=== PATIENT | female | born 1985 | race Caucasian/White ===

== ENCOUNTER 2017-01-07 22:10 | Inpatient (IN) | payer MEDICAID ==
[~2017-01-07] VITALS: Ht 165.1 cm; Wt 91.8 kg
[~2017-01-07 22:10] MED LIST: NO MEDS
[2017-01-08] VITALS (24 sets, daily range): BP systolic 92–161; BP diastolic 55–82; PULSE 72–98; RESP 14–20; Ht 165.1 cm; Wt 91.8 kg
[2017-01-08] MEDS ORDERED: ONDANSETRON 4 MG INJ IV STA (00:43)
[2017-01-08] MEDS ORDERED: SOD CHLORIDE 0.9% 1,000 ML IV STA (00:43)
[2017-01-08] MEDS ORDERED: morphine 4 MG/ML VIAL IV STA (00:43)
--- NOTE | 2017-01-08 01:11 | ERD ---
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 HPI 31-year-old female presents here in emergency department for complaints of bilateral lower pelvic pain that started 2 hours prior to arrival. Patient had vomiting episodes. Patient denies any diarrhea or constipation. Patient last menstruation December 02, 2016. Patient is complaining of pelvic pain, cramping pain, 4/10 scale, started to have vaginal spotting also today. Patient denies any hematuria or dysuria. Patient denies any flank pain. ROS All systems reviewed and are negative except as per history of present illness. Medications Home Meds Reported Medications [No Meds] No Conflict Check 07/12/12 Allergies Allergies: Coded Allergies: No Known Allergy (Unverified , 01/07/17) PMhx/Soc Medical and Surgical Hx: pt denies Surgical Hx History of Surgery: No Anesthesia Reaction: No Hx Neurological Disorder: No Hx Respiratory Disorders: No Hx Cardiac Disorders: No Hx Psychiatric Problems: No Hx Miscellaneous Medical Probl: Yes (HTN) Hx Alcohol Use: No Hx Substance Use: No Hx Tobacco Use: No Smoking Status: Never smoker FmHx Family History: No coronary disease, No diabetes, No other Physical Exam Vitals Vital Signs Date Time Temp Pulse Resp B/P Pulse Ox O2 Delivery O2 Flow Rate FiO2 01/07/17 22:19 98.9 85 20 121/89 98 Physical Exam GENERAL: The patient is well developed and appropriate for usual state of health, in no apparent distress. CHEST: Clear to auscultation bilaterally. There are no rales, wheezes or rhonchi. HEART: Regular rate and rhythm. No murmurs, clicks, rubs or gallops. No S3 or S4. ABDOMEN: Soft, nontender and nondistended. Good bowel sounds. No rebound or guarding. No gross peritonitis. No gross organomegaly or masses. No Gonzalez sign or McBurney point tenderness. BACK: No midline or flank tenderness. EXTREMITIES: Equal pulses bilaterally. There is no peripheral clubbing, cyanosis or edema. No focal swelling or erythema. Full range of motion. Grossly neurovascularly intact. NEURO: Alert and oriented. Cranial nerves 2-12 intact. Motor strength in all 4 extremities with 5/5 strength. Sensation grossly intact. Normal speech and gait. SKIN: There is no apparent rash or petechia. The skin is warm and dry. HEMATOLOGIC AND LYMPHATIC: There is no evidence of excessive bruising or lymphedema. No gross cervical, axillary, or inguinal lymphadenopathy. Result Diagram: 01/08/17 0054 01/08/17 0054 Results 24 hrs Laboratory Tests Test 01/08/17 00:42 01/08/17 00:54 Urine Color JASWINDER Urine Clarity CLOUDY Urine pH 5.0 Urine Specific [place] 1.044 Urine Ketones TRACEmg/dL Urine Nitrite NEGATIVEmg/dL Urine Bilirubin 1+mg/dL Urine Urobilinogen 1+mg/dL Urine Leukocyte Esterase NEGATIVELeu/ul Urine Microscopic RBC 111/HPF Urine Microscopic WBC 14/HPF Urine Squamous Epithelial Cells MODERATE/HPF Urine Bacteria FEW/HPF Urine Mucus MANY/HPF Urine Hemoglobin 2+mg/dL Urine Glucose 1+mg/dL Urine Total Protein 2+mg/dl White Blood Count 21.010^3/ul Red Blood Count 3.9510^6/ul Hemoglobin 11.5g/dl Hematocrit 34.5% Mean Corpuscular Volume 87.3fl Mean Corpuscular Hemoglobin 29.1pg Mean Corpuscular Hemoglobin Concent 33.3g/dl Red Cell Distribution Width 12.6% Platelet Count 74621^3/UL Mean Platelet Volume 9.3fl Neutrophils % 83.8% Lymphocytes % 10.9% Monocytes % 4.3% Eosinophils % 0.1% Basophils % 0.3% Nucleated Red Blood Cells % 0.0/100WBC Neutrophils # 17.610^3/ul Lymphocytes # 2.310^3/ul Monocytes # 0.910^3/ul Eosinophils # 0.010^3/ul Basophils # 0.110^3/ul Nucleated Red Blood Cells # 0.010^3/ul Sodium Level 142mmol/L Potassium Level 4.3mmol/L Chloride Level 107mmol/L Carbon Dioxide Level 24mmol/L Anion Gap 15 Blood Urea Nitrogen 20mg/dl Creatinine 0.84mg/dl Glucose Level 176mg/dl Calcium Level 9.2mg/dl Total Bilirubin 0.1mg/dl Direct Bilirubin 0.00mg/dl Indirect Bilirubin 0.1mg/dl Aspartate Amino Transf (AST/SGOT) 21IU/L Alanine Aminotransferase (ALT/SGPT) 25IU/L Alkaline Phosphatase 73IU/L Total Protein 7.8g/dl Albumin 4.1g/dl Globulin 3.70g/dl Albumin/Globulin Ratio 1.10 Lipase 53U/L Beta HCG, Quantitative 1013.4mIU/ml Current Medications Medications (Trade) Dose Ordered Sig/James Route PRN Reason Start Time Stop Time Status Last Admin Dose Admin Sodium Chloride (NS) 1,000 ml @ 1,000 mls/hr Q1H STAT IV 01/08/17 00:43 01/08/17 01:42 DC 01/08/17 00:57 Morphine Sulfate (morphine) 4 mg ONCE STAT IV 01/08/17 00:43 01/08/17 00:48 DC Ondansetron HCl (Zofran Inj) 4 mg ONCE STAT IV 01/08/17 00:43 01/08/17 00:45 DC 01/08/17 01:00 Morphine Sulfate (morphine) 6 mg ONCE ONCE IV 01/08/17 02:00 01/08/17 02:01 DC 01/08/17 01:49 Metoclopramide HCl (Reglan) 10 mg ONCE ONCE IV 01/08/17 02:30 01/08/17 02:31 DC 01/08/17 02:26 Hydromorphone HCl (Dilaudid) 1 mg ONCE STAT IV 01/08/17 02:57 01/08/17 02:58 UNV Patient was given medication for pain here in emergency department, after treatment, patient verbalized feeling much better. Patient's pain is improved. Patient was given Zofran here in the emergency department. After treatment, patient was able to tolerate po fluids here in the emergency department without any vomiting. There is no signs and symptoms of dehydration. Normal saline IV bolus was given here in emergency department for rehydration, patient tolerated IV fluids. PROCEDURE: Obstetrical ultrasound. CLINICAL INDICATION: Pelvic pain. TECHNIQUE: Multiple sonographic images of the pelvis were obtained utilizing a transabdominal and endovaginal technique. The images were reviewed on a PACS workstation. COMPARISON: None. FINDINGS: The uterus is visualized. No abnormal uterine mass is identified. The endometrial echo complex is homogeneous and measures 5 mm. No intrauterine is identified. Bilateral ovaries are not visualized. There is heterogeneous material throughout the pelvis suggestive of blood and blood clots. IMPRESSION: No intrauterine identified. Clinical beta-hCG correlation and follow- up is recommended. Heterogeneous material throughout the pelvis suggestive of blood and blood clots. Bilateral ovaries not visualized. .Paras Irvin MD, Date Time Electronically viewed and signed by .Paras Irvin MD, on 01/08/2017 01:49 .T/ CC: DARBY SWEET [employer] DEVELOPER Procedures/MDM Medical Decision Making: Patient has heterogeneous possible blood clots and blood surrounding the uterus and pelvis, the pelvic pain nonspecific at this time, has positive test but no IUP noted, can be early symptoms of ectopic . I discussed this case with OB specialist, , admit patient to the hospital for further evaluation treatment and observation. Patient is stable at this time, medicated for pain at this time Disclaimer: Inadvertent spelling and grammatical errors are likely due to EHR/ dictation software use and do not reflect on the overall quality of patient care. Also, please note that the electronic time recorded on this note does not necessarily reflect the actual time of the patient encounter. Departure Diagnosis: Primary Impression: Pelvic pain Additional Impression: Positive test Condition: Fair DARBY SWEET NP Jan 08, 2017 01:11
[2017-01-08 01:15] LABS: BASOPHIL # 0.1 10^3/ul (0.0-0.1); BASOPHILS % 0.3 % (0.0-2.0); EOSINOPHILS % 0.1 % (0.0-7.0); HEMATOCRIT 34.5 % (37.0-47.0); HEMOGLOBIN 11.5 g/dl (12.0-16.0); LYMPHOCYTES # 2.3 10^3/ul (0.8-2.9); LYMPHOCYTES % 10.9 % (15.0-51.0); MEAN CORPUSCULAR HEMOGLOBIN 29.1 pg (29.0-33.0); MEAN CORPUSCULAR HGB CONC 33.3 g/dl (32.0-37.0); MEAN CORPUSCULAR VOLUME 87.3 fl (82.0-101.0); MEAN PLATELET VOLUME 9.3 fl (7.4-10.4); MONOCYTE # 0.9 10^3/ul (0.3-0.9); MONOCYTES % 4.3 % (0.0-11.0); NEUTROPHIL # 17.6 10^3/ul (1.6-7.5); NEUTROPHILS % 83.8 % (39.0-77.0); PLATELET COUNT 365 10^3/UL (140-415); RED BLOOD COUNT 3.95 10^6/ul (4.20-5.40); RED CELL DISTRIBUTION WIDTH 12.6 % (11.5-14.5)
[2017-01-08 01:31] LABS: ADD UMIC YES; UR ASCORBIC ACID 40 mg/dL (NEGATIVE); UR BACTERIA FEW /HPF (NONE SEEN); UR BILIRUBIN (Dip) 1+ mg/dL (NEGATIVE); UR BLOOD (Dip) 2+ mg/dL (NEGATIVE); UR CLARITY CLOUDY (CLEAR); UR COLOR AMBER (YELLOW); UR GLUCOSE (Dip) 1+ mg/dL (NEGATIVE); UR KETONES (Dip) TRACE mg/dL (NEGATIVE); UR LEUKOCYTE ESTERASE (Dip) NEGATIVE Leu/ul (NEGATIVE); UR MUCUS MANY /HPF (NONE SEEN); UR NITRITE (Dip) NEGATIVE (NEGATIVE); UR RBC 111 /HPF (0-5); UR SPECIFIC GRAVITY (Dip) 1.044 (1.003-1.030); UR SQUAMOUS EPITHELIAL CELL MODERATE /HPF (FEW); UR TOTAL PROTEIN (Dip) 2+ mg/dl (NEGATIVE); UR UROBILINOGEN (Dip) 1+ mg/dL (NEGATIVE)
[2017-01-08 01:44] LABS: ALBUMIN 4.1 g/dl (3.3-4.9); ALBUMIN/GLOBULIN RATIO 1.1; BILIRUBIN,INDIRECT 0.1 mg/dl (0-1.1); BILIRUBIN,TOTAL 0.1 mg/dl (0.2-1.3); CALCIUM 9.2 mg/dl (8.4-10.2); CREATININE 0.84 mg/dl (0.44-1.00); POTASSIUM 4.3 mmol/L (3.5-5.1); TOTAL PROTEIN 7.8 g/dl (6.1-8.1)
--- NOTE | 2017-01-08 01:49 | RADRPT ---
PROCEDURE: Obstetrical ultrasound. CLINICAL INDICATION: Pelvic pain. TECHNIQUE: Multiple sonographic images of the pelvis were obtained utilizing a transabdominal and endovaginal technique. The images were reviewed on a PACS workstation. COMPARISON: None. FINDINGS: The uterus is visualized. No abnormal uterine mass is identified. The endometrial echo complex is h omogeneous and measures 5 mm. No intrauterine is identified. Bilateral ovaries are not visualized. There is heterogeneous material throughout the pelvis suggesti ve of blood and blood clots. IMPRESSION: No intrauterine identified. Clinical beta-hCG correlation and follow-up is recommended. Heterogeneous material throughout the pelvis suggestive of blood and blood clots. Bilateral ovaries not visualized. .Paras Irvin MD, Date Time Electronically viewed and signed by .Paras Irvin MD, MD on 01/08/2017 01:49 .T/
[2017-01-08] MEDS ORDERED: morphine 10 MG INJ IV ONE (02:00)
[2017-01-08] MEDS ORDERED: METOCLOPRAMIDE 10 MG INJ IV ONE (02:30)
[2017-01-08] MEDS ORDERED: HYDROmorphONE 1 MG/ML SYG IV ONE (03:00)
--- NOTE | 2017-01-08 03:17 | CONS ---
Date/Time of Note Date/Time of Note DATE: 01/08/17 TIME: 03:01 Assessment/Plan Assessment/Plan Chief Complaint/Hosp Course , 31-year-old with lower abdominal pain more than right and left side with positive hCG. None discriminate auditory. No adnexal mass. Evidence of some heterogeneous material inside the pelvis questionable for a blood clot. No evidence of IUP noted in the ultrasound. Cannot rule out Ectopic versus early IUP/ SAB with ruptured hemorrhagic corpus luteum cyst desires. Patient desired to keep the if it is a normal Currently vital signs stable and patient hemodynamically stable. We will admit the patient to Medr unit Consider serial hemoglobin and repeat hCG in 8 hours. If the serum hCG after 8 hours shows drop that consistent with nonviable . Discussed at that point with the patient consider diagnostic laparoscopy with or without D&C however if serum hCG after 8 hours does not show any drop as long as the patient stable can continue to observe in-house his serial hemoglobin and observation. If hemoglobin drops and vitals become unstable or evidence of continued bleeding consider diagnostic laparoscopy for further evaluation rule out ectopic versus ruptured ovarian cyst. This plan has been discussed with patient in detail. All questions were answered to the patient's satisfaction. 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 Pain gradually has been worsened. Pain is more in the right side. Is also in the left side as well. She also had some nausea. Denies any fever, chills or chest pain, dizziness, lightheadedness. She also reports that started having some spotting. Patient reports her LMP was December 02, 2016. She is currently using OCPs for control however admits that she is not taking control regularly and she uses when she has intercourse. She was unaware of positive test. She was noted to have a CG thousand level with ultrasound finding consistent with some heterogeneous material inside the pelvis and the cul-de-sac with no evidence of IUP and no adnexal mass questionable for blood clot or fluid inside the pelvis. Patient denies any abnormal vaginal discharge. She is . Status post 1 and 3. Per patient cycles were irregular. Denies any prior history of STD or PID in the past. Last had a delivery via . 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 Denies any history of STD or PID LMP is December 02, 2016 Irregular cycles Past Surgical History Past surgical history: Status post 1 Family History Significant Family History: no pertinent family hx Social History Patient denies of smoking, drinking alcohol or using any drugs Alcohol Use: none Smoking Status: Never smoker Drug Use: none Exam/Review of Systems Vital Signs Vitals Vital Signs Date Time Temp Pulse Resp B/P Pulse Ox O2 Delivery O2 Flow Rate FiO2 01/07/17 22:19 98.9 85 20 121/89 98 Exam Constitutional: alert, distress (Mild to moderate distress), oriented, well developed Psych: no complaints Head: atraumatic, normocephalic Eyes: EOMI, nl conjunctiva, nl lids ENMT: nl external ears & nose, nl lips & teeth, nl nasal mucosa & septum Neck: non-tender, supple Respiratory: clear to auscultation, normal air movement Cardiovascular: nl pulses, regular rate and rhythm Gastrointestinal: soft, tender (Tenderness in both lower abdomen more in the right and left) Genitourinary - Female: other (/Speculum examination: Cervix appears normal. Scant amount of blood in the vault. There is cervical motion tenderness removing the cervix to the right. 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, nl mental status, nl speech, nl strength Skin: nl turgor, rash or lesions Lymph: nl lymph nodes Results Result Diagram: 01/08/17 0054 01/08/17 0054 Results 24 hrs Laboratory Tests Test 01/08/17 00:42 01/08/17 00:54 Urine Color JASWINDER Urine Clarity CLOUDY A Urine pH 5.0 Urine Specific [place] 1.044 H Urine Ketones TRACE A Urine Nitrite NEGATIVE Urine Bilirubin 1+ H Urine Urobilinogen 1+ H Urine Leukocyte Esterase NEGATIVE Urine Microscopic RBC 111 H Urine Microscopic WBC 14 H Urine Squamous Epithelial Cells MODERATE Urine Bacteria FEW A Urine Mucus MANY A Urine Hemoglobin 2+ H Urine Glucose 1+ H Urine Total Protein 2+ H White Blood Count 21.0 H Red Blood Count 3.95 L Hemoglobin 11.5 L Hematocrit 34.5 L Mean Corpuscular Volume 87.3 Mean Corpuscular Hemoglobin 29.1 Mean Corpuscular Hemoglobin Concent 33.3 Red Cell Distribution Width 12.6 Platelet Count 365 Mean Platelet Volume 9.3 Neutrophils % 83.8 H Lymphocytes % 10.9 L Monocytes % 4.3 Eosinophils % 0.1 Basophils % 0.3 Nucleated Red Blood Cells % 0.0 Neutrophils # 17.6 H Lymphocytes # 2.3 Monocytes # 0.9 Eosinophils # 0.0 Basophils # 0.1 Nucleated Red Blood Cells # 0.0 Sodium Level 142 Potassium Level 4.3 Chloride Level 107 Carbon Dioxide Level 24 Anion Gap 15 Blood Urea Nitrogen 20 Creatinine 0.84 Glucose Level 176 Calcium Level 9.2 Total Bilirubin 0.1 L Direct Bilirubin 0.00 Indirect Bilirubin 0.1 Aspartate Amino Transf (AST/SGOT) 21 Alanine Aminotransferase (ALT/SGPT) 25 Alkaline Phosphatase 73 Total Protein 7.8 Albumin 4.1 Globulin 3.70 H Albumin/Globulin Ratio 1.10 Lipase 53 Beta HCG, Quantitative 1013.4 Imaging Free Text/Dictation PROCEDURE: Obstetrical ultrasound. CLINICAL INDICATION: Pelvic pain. TECHNIQUE: Multiple sonographic images of the pelvis were obtained utilizing a transabdominal and endovaginal technique. The images were reviewed on a PACS workstation. COMPARISON: None. FINDINGS: The uterus is visualized. No abnormal uterine mass is identified. The endometrial echo complex is homogeneous and measures 5 mm. No intrauterine is identified. Bilateral ovaries are not visualized. There is heterogeneous material throughout the pelvis suggestive of blood and blood clots. IMPRESSION: No intrauterine identified. Clinical beta-hCG correlation and follow- up is recommended. Heterogeneous material throughout the pelvis suggestive of blood and blood clots. Bilateral ovaries not visualized. Medications Medications Current Medications Hydromorphone HCl (Dilaudid) 1 mg ONCE ONCE IV ; Start 01/08/17 at 03:00; Stop 01/08/17 at 03:01 HARPREET RASHID MD Jan 08, 2017 03:12
[2017-01-08] MEDS ORDERED: morphine 2 MG INJ IV PRN (03:30)
[2017-01-08] MEDS ORDERED: morphine 4 MG/ML VIAL IV PRN (03:30)
--- NOTE | 2017-01-08 09:46 | HP ---
Date/Time of Note Date/Time of Note DATE: 01/08/17 TIME: 09:36 Assessment/Plan VTE Prophylaxis VTE Prophylaxis Intervention: ambulation HPI/ROS Admit Date/Time Admit Date/Time January 08, 2017 Preoperative history and physical Patient is a 31 years old 6 para 4 who had one previous section and 3 spontaneous vaginal delivery in the past, Her last menstrual period was in early February she came to emergency room complaining of lower abdominal pain and vaginal spotting , on the lab study her beta hCG level was 1013 WBC was 21,000 she said she has been taking oral contraceptive on no regular basis usually when she is having intercourse!, On ultrasound study the uterus was visualized and was normal size .no intrauterine was noted , ovaries were not visualized . there was heterogeneous material throughout the pelvic suggestive of blood clots , With these findings the ectopic was very likely. Findings were discussed with the patient and she agreed to undergo a D&C and diagnostic laparoscopy with possible removal of one tube or even possible laparotomy. On general examination she is a well-developed well-nourished patient complaining of pain or abdominal area Hx of Present Illness Laboratory Tests Test 01/08/17 00:42 01/08/17 00:54 01/08/17 06:02 01/08/17 07:00 Urine Color JASWINDER Urine Clarity CLOUDY Urine pH 5.0 Urine Specific [place] 1.044 Urine Ketones TRACEmg/dL Urine Nitrite NEGATIVEmg/dL Urine Bilirubin 1+mg/dL Urine Urobilinogen 1+mg/dL Urine Leukocyte Esterase NEGATIVELeu/ul Urine Microscopic RBC 111/HPF Urine Microscopic WBC 14/HPF Urine Squamous Epithelial Cells MODERATE/HPF Urine Bacteria FEW/HPF Urine Mucus MANY/HPF Urine Hemoglobin 2+mg/dL Urine Glucose 1+mg/dL Urine Total Protein 2+mg/dl White Blood Count 21.010^3/ul Red Blood Count 3.9510^6/ul Hemoglobin 11.5g/dl 9.6g/dl Hematocrit 34.5% Mean Corpuscular Volume 87.3fl Mean Corpuscular Hemoglobin 29.1pg Mean Corpuscular Hemoglobin Concent 33.3g/dl Red Cell Distribution Width 12.6% Platelet Count 38203^3/UL Mean Platelet Volume 9.3fl Neutrophils % 83.8% Lymphocytes % 10.9% Monocytes % 4.3% Eosinophils % 0.1% Basophils % 0.3% Nucleated Red Blood Cells % 0.0/100WBC Neutrophils # 17.610^3/ul Lymphocytes # 2.310^3/ul Monocytes # 0.910^3/ul Eosinophils # 0.010^3/ul Basophils # 0.110^3/ul Nucleated Red Blood Cells # 0.010^3/ul Sodium Level 142mmol/L Potassium Level 4.3mmol/L Chloride Level 107mmol/L Carbon Dioxide Level 24mmol/L Anion Gap 15 Blood Urea Nitrogen 20mg/dl Creatinine 0.84mg/dl Glucose Level 176mg/dl Calcium Level 9.2mg/dl Total Bilirubin 0.1mg/dl Direct Bilirubin 0.00mg/dl Indirect Bilirubin 0.1mg/dl Aspartate Amino Transf (AST/SGOT) 21IU/L Alanine Aminotransferase (ALT/SGPT) 25IU/L Alkaline Phosphatase 73IU/L Total Protein 7.8g/dl Albumin 4.1g/dl Globulin 3.70g/dl Albumin/Globulin Ratio 1.10 Lipase 53U/L Beta HCG, Quantitative 1013.4mIU/ml Urine Test POSITIVE Test 01/08/17 07:55 Hemoglobin 9.9g/dl Current Medications Medications (Trade) Dose Ordered Sig/James Route PRN Reason Start Time Stop Time Status Last Admin Dose Admin Sodium Chloride (NS) 1,000 ml @ 1,000 mls/hr Q1H STAT IV 01/08/17 00:43 01/08/17 01:42 DC 01/08/17 00:57 1,000 MLS/HR Morphine Sulfate (morphine) 4 mg ONCE STAT IV 01/08/17 00:43 01/08/17 00:48 DC Ondansetron HCl (Zofran Inj) 4 mg ONCE STAT IV 01/08/17 00:43 01/08/17 00:45 DC 01/08/17 01:00 4 MG Morphine Sulfate (morphine) 6 mg ONCE ONCE IV 01/08/17 02:00 01/08/17 02:01 DC 01/08/17 01:49 6 MG Metoclopramide HCl (Reglan) 10 mg ONCE ONCE IV 01/08/17 02:30 01/08/17 02:31 DC 01/08/17 02:26 10 MG Hydromorphone HCl (Dilaudid) 1 mg ONCE ONCE IV 01/08/17 03:00 01/08/17 03:01 DC 01/08/17 03:11 1 MG Morphine Sulfate (morphine) 3 mg Q3 PRN IV Pain 01/08/17 03:30 01/08/17 03:30 DC Morphine Sulfate (morphine) 3 mg Q2H PRN IV Pain 01/08/17 03:30 01/08/17 07:22 3 MG Influenza Virus Vaccine (Fluzone) 0.5 ml ONCE ONCE IM* 01/08/17 14:00 01/08/17 14:01 ROS Constitutional: No chills, No diaphoresis, No disoriented, No fatigue, No febrile, No improved, No nausea, No no complaints, No other, No poor po, No weight change Eyes: no complaints, No discharge, No other, No pain, No redness, No visual change ENT: no complaints, other (Somewhat pale conjunctiva), No bleeding, No congestion, No discharge, No dysphagia, No pain, No sore throat Respiratory: no complaints, No cough, No other, No pain, No pleuritic pain, No shortness of breath, No sputum, No wheezing Cardiovascular: no complaints, No chest pain, No edema, No lightheadedness, No orthopenea, No other, No palpitations, No paroxysmal nocturnal dyspnea Gastrointestinal: other (Abdomen is somewhat tender especially in the right lower quadrant however on palpation on all 4 quadrant she has pain mostly at the lower portion no true CVA tenderness), pain, No blood, No constipation, No decreased appetite, No diarrhea, No flatus, No nausea, No no complaints, No passing stool, No vomiting Genitourinary: bleeding, other (Pelvic examination she has a slight bleeding the uterus is top normal size and the cervix is exquisitely tender on motion), No discharge, No dysuria, No flank pain, No hematuria, No no complaints Musculoskeletal: No back pain, No bone/joint pain, No neck pain, No no complaints, No other, No restricted range of motion, No swelling Skin: no complaints, No bruising, No erythema, No laceration, No other, No pruritis, No rash, No skin lesions Neurologic: no complaints, No confusion, No dizziness, No focal-weakness, No headache, No other, No seizure, No syncope Endocrine: other (Her beta hCG was over thousand), No dry skin, No no complaints, No polydypsia, No polyuria, No temp intolerance, No weight change Lymphatic: no complaints, No adenopathy, No lymphadema, No other, No tender nodes Psychological: no complaints Immunologic: no complaints Additional Comments With these finding her condition was discussed with the possibility of ectopic possibility of a early miscarriage and ruptured luteal cyst and a strong possibility of intra-abdominal bleeding. The need for a surgery including D&C as well as a diagnostic laparoscopy, possible laparotomy. possible removal of one tube were discussed with her in detail directly and through an engine assembler. she understands all of those and will undergo this procedure End of dictation thank you PMH/Family/Social Social History Alcohol Use: none Smoking Status: Never smoker Drug Use: none Exam/Review of Systems Vital Signs Vitals Vital Signs Date Time Temp Pulse Resp B/P Pulse Ox O2 Delivery O2 Flow Rate FiO2 01/08/17 05:13 98.1 79 18 129/65 100 Room Air Labs Result Diagram: 01/08/17 0755 01/08/17 0054 Medications Medications Current Medications Morphine Sulfate (morphine) 3 mg Q2H PRN IV Pain Last administered on t 07:22; Admin Dose 3 MG; Start 01/08/17 at 03:30 Influenza Virus Vaccine (Fluzone) 0.5 ml ONCE ONCE IM* ; Start 01/08/17 at 14: 00; Stop 01/08/17 at 14:01 CATHRYN HERNANDEZ MD Jan 08, 2017 09:46
[2017-01-08] MEDS ORDERED: MIDAZOLAM 1 MG/ML 2 ML INJ ONE (09:58)
[2017-01-08] MEDS ORDERED: CEFAZOLIN 1 GM INJ ONE (10:52)
[2017-01-08] MEDS ORDERED: GLYCOPYRROLATE 1 MG INJ ONE (10:52)
[2017-01-08] MEDS ORDERED: NEOSTIGMINE 3 MG/3 ML SYRINGE ONE (10:52)
[2017-01-08] MEDS ORDERED: LIDOCAINE 2% (SDV) 5 ML INJ ONE (10:52)
[2017-01-08] MEDS ORDERED: PROPOFOL 20 ML ONE (10:52)
[2017-01-08] MEDS ORDERED: ROCURONIUM 50 MG INJ ONE (10:52)
[2017-01-08] MEDS ORDERED: ONDANSETRON 4 MG INJ ONE (11:57)
--- NOTE | 2017-01-08 12:36 | OPR ---
Date/Time of Note Date/Time of Note DATE: 01/08/17 TIME: 12:23 Operative Report Free Text/Dictation January 08, 2017 Operative report Final diagnosis Ruptured right tubal Procedures: Dilatation and curettage, diagnostic laparoscopy, Removal of right tubal ectopic . Right salpingectomy Under satisfactory General anesthesia patient was placed in lithotomy position, abdominal and vaginal area were prepped and patient was draped. A bimanual pelvic examination was performed the uterus was normal size. Under sterile conditions condition a weighted speculum was placed inside the vagina and the cervix was picked up with a tenaculum, uterus sounded about 7 cm. Using a #7 canula curette the curettage was performed. The procedure continued by inserting an small caliber canula through an small umbilical incision. On inspection of peritoneal cavity there was fair amount of blood and blood cloth in pelvic and abdominal cavity. Blood cloths were removed and suctioned as much as possible. The left tube and ovary were normal. how ever the right tube had evidence of an ectopic . The meso salpinx on right side was camped ,cauterized and cut in several steps. then the entire right tube containing the ectopic was removed and later extracted from abdominal cavity through a larger canula. This specimen was sent for pathological exam. As I mentioned suctioning of blood clots were performed as well as irrigation. A thorough inspection of the peritoneal cavity was performed to ensure complete hemostasis. Picture taken before and after surgery. Patient received 2 g of Ancef. The incision site of the 12 mm canula at the suprapubic area was sutured and closed with Vicryl O sutured under direct visualization . After cleaning and removing blood clots and debris from abdominal and pelvic cavity the instrument were removed ,gas evacuated, . The skin were sutured with 4-0 Monocryl on all 3 incision sites . She tolerated the procedures well and was transferred to the recovery room in a stable condition. 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
[2017-01-08] MEDS ORDERED: HYDROmorphONE 2 MG/ML SYG ONE (12:53)
[2017-01-08] MEDS ORDERED: HYDROmorphONE 0.5 MG/0.5 ML SYG IV PRN ×2 (13:00)
[2017-01-08] MEDS ORDERED: ONDANSETRON 4 MG INJ IV PRN (13:00)
[2017-01-08] MEDS ORDERED: FENTAnyl 50 MCG/ML VIAL IV PRN ×2 (13:00)
[2017-01-08] MEDS ORDERED: HYDROmorphONE 1 MG/ML SYG IV PRN (13:00)
[2017-01-08] MEDS ORDERED: INFLUENZA VIRUS VACCINE 0.5 ML SYG IM* ONE (14:00)
[2017-01-08] MEDS ORDERED: KETOROLAC 15 MG INJ IV PRN (14:00)
[2017-01-08] MEDS ORDERED: IBUPROFEN 600 MG TAB GTB PRN (14:00)
[2017-01-08] MEDS: DEXTROSE 5% 1,000 ML IV SCH ×2 (14:38→22:00)
[2017-01-08 15:01] LABS: BASOPHILS % 0.2 % (0.0-2.0); HEMATOCRIT 26.7 % (37.0-47.0); HEMOGLOBIN 8.5 g/dl (12.0-16.0); LYMPHOCYTES # 1.2 10^3/ul (0.8-2.9); LYMPHOCYTES % 9.7 % (15.0-51.0); MEAN CORPUSCULAR HEMOGLOBIN 28.1 pg (29.0-33.0); MEAN CORPUSCULAR HGB CONC 31.8 g/dl (32.0-37.0); MEAN CORPUSCULAR VOLUME 88.4 fl (82.0-101.0); MEAN PLATELET VOLUME 9.4 fl (7.4-10.4); MONOCYTE # 0.7 10^3/ul (0.3-0.9); MONOCYTES % 5.2 % (0.0-11.0); NEUTROPHIL # 10.8 10^3/ul (1.6-7.5); NEUTROPHILS % 84.4 % (39.0-77.0); PLATELET COUNT 253 10^3/UL (140-415); RED BLOOD COUNT 3.02 10^6/ul (4.20-5.40); RED CELL DISTRIBUTION WIDTH 13.2 % (11.5-14.5); WHITE BLOOD COUNT 12.8 10^3/ul (4.8-10.8)
== END 2017-01-08 22:45 | disposition left against medical advice (07) | DRG 777 ==
LOC: FTE 22:10 → MS3 01-08 03:21 → MS2 01-08 14:10
PROVIDERS: ADMIT Obstetrics & Gynecology Obstetrics; ATTEND Obstetrics & Gynecology Obstetrics
PROC: 10T24ZZ Resection of Products of Conception, Ectopic, Percutaneous Endoscopic Approach (ICD-10-PCS; 2017-01-08)
PROC: 0UT54ZZ Resection of Right Fallopian Tube, Percutaneous Endoscopic Approach (ICD-10-PCS; principal; 2017-01-08 17:00)
DX: O00.101 Right tubal pregnancy without intrauterine pregnancy (principal); E66.01 Morbid (severe) obesity due to excess calories; Z68.33 Body mass index [BMI] 33.0-33.9, adult
CPT/HCPCS: 36415; 76801; 76817; 80053; 81001; 83690; 84702; 84703; 85018; 85025; 86900; 86901; 87086; 88305; 90686; 96374; 96375; J0690; J1170; J2250; J2270; J2405; J2710; J2765; J3010; J7030; J7070

== ENCOUNTER 2017-08-03 05:21 | Emergency (ER) | END 2017-08-03 07:35 | disposition home or self-care (01) ==

== ENCOUNTER 2017-09-26 20:38 | Emergency (ER) | END 2017-09-26 23:15 | disposition home or self-care (01) ==

== ENCOUNTER 2017-11-07 19:58 | Emergency (ER) | END 2017-11-07 23:30 | disposition home or self-care (01) ==

== ENCOUNTER 2018-04-23 03:45 | Inpatient (IN) | payer MEDICAID ==
[~2018-04-23] VITALS: Ht 165.1 cm; Wt 105.8 kg
[~2018-04-23 03:45] MED LIST changes: +ACET500C5 PO; +CEPH-443 PO; +NAPR-985 PO; +ONDA4TAB14 PO
[2018-04-23] MEDS ORDERED: LACTATED RINGER'S 1,000 ML IV PRN (04:37)
[2018-04-23 04:47] VITALS: BP 141/84; PULSE 89; RESP 18
[2018-04-23] MEDS ORDERED: OXYTOCIN 30 UNITS/LR 500 ML IV SCH ×3 (05:00→09:30)
[2018-04-23] MEDS ORDERED: IBUPROFEN 600 MG TAB PO PRN (05:00)
[2018-04-23] MEDS ORDERED: BUTORPHANOL 2 MG INJ IV PRN (05:00)
[2018-04-23] MEDS ORDERED: MISOPROSTOL 200 MCG TAB PR PRN ×3 (05:00→15:30)
[2018-04-23] MEDS ORDERED: OXYTOCIN 30 UNITS/LR 500 ML IV PRN ×3 (05:00→15:30)
[2018-04-23] MEDS ORDERED: LIDOCAINE 1% (MPF) 30 ML INJ INJ PRN (05:00)
[2018-04-23] MEDS ORDERED: MINERAL OIL LIGHT 10 ML VIAL TOP ONE (05:00)
[2018-04-23] MEDS ORDERED: CARBOPROST 250 MCG INJ IM PRN ×3 (05:00→15:30)
[2018-04-23] MEDS ORDERED: METHYLERGONOVINE 0.2 MG INJ IM PRN ×3 (05:00→15:30)
--- NOTE | 2018-04-23 05:11 | TRIAGE ---
OB Triage Datetime Report Generated by CPN: 04/23/2018 05:10 Datetime: 04/23/2018 04:55 Monitor Mode: External Monitor Mode: External US Datetime: 04/23/2018 04:20 Vaginal Exam Dilatation (cms): 3.0 Effacement (%): 50 Station: -2 Exam By: VASILIY Clemons RN Vaginal Bleeding: None Nitrazine: Negative Cervix, Consistency: Moderate Cervix, Position: Midposition Presentation 'A': Cephalic Lie 'A': Unable to Assess Datetime: 04/23/2018 04:17 Labor Evaluation Frequency: 2-4 Monitor Mode: External Quality: Moderate Pattern: Normal: <= 5 Contractions in 10 Minutes Resting Tone [place]: Relaxed Heart Rate FHR Baseline Rate: 140 Monitor Mode: External US FHR Baseline Changes: No Baseline Change Variability: Moderate 6-25 bpm Accelerations: 15X15 Membrane Status: Ruptured Membranes Ruptured Date/Time: 04/23/2018 02:30 Membranes Rupture Method: Spontaneous Amniotic Fluid Color: Light Meconium Amniotic Fluid Amount: Small Amniotic Fluid Odor: Normal Vaginal Bleeding: None Nitrazine: Positive Cervix, Position: Posterior Presentation 'A': Cephalic Datetime: 04/23/2018 04:01 Stage of : OB Triage Maternal Assessment Level of Consciousness: Fully Conscious DTR's/Clonus: DTRs 2+ Headache: Denies Blurred Vision: No Respiratory Effort: Unlabored Breath Sounds, Left: Clear and Equal Breath Sounds, Right: Clear and Equal Nausea/Vomiting: Denies Facial Edema: None Heart Rate FHR Baseline Rate: 136 Monitor Mode: External US FHR Baseline Changes: No Baseline Change Variability: Moderate 6-25 bpm Accelerations: 15X15 Decelerations: None Category: Category I Pain Assessment Pain Scale: 6 Pain Presence: Intermittent Pain Type: Cramping; Contraction Pain Location: Abdomen; Back Pain Goal: 2 Datetime: 04/23/2018 03:55 Time of Arrival: 04/23/2018 03:37 EGA: 38.2 Arrived By: Wheelchair Arrived From: Home Chief Complaint: L4 hx c/s x1 c/o srom @0230 and ucs Movement: Present Contractions: Regular Time Contractions Began: 04/23/2018 01:00 Contractions: Q15 Rupture of Membranes: Ruptured Vaginal Bleeding: None Vaginal Discharge: Present Recent Sexual Intercouse: Denies Abdominal Trauma: Not Applicable Patient Complaints: Contractions Time Provider Notified: 04/23/2018 04:25 Provider Notified: Dr Dutta Initial Plan: FELIX WEAVER
[2018-04-23] MEDS: LACTATED RINGER'S 1,000 ML IV SCH ×2 (05:56→12:23)
--- NOTE | 2018-04-23 06:22 | PREAC ---
Date/Time of Note Date/Time of Note DATE: 04/23/18 TIME: 06:20 Anesthesia Eval and Record Evaluation Time Pre-Procedure Interview DATE: 04/23/18 TIME: 06:20 Age 32 Sex female NPO: 8 hrs Preoperative diagnosis iup at 38 weeks Planned procedure labor epidural Past Medical History Past Medical History: Includes GI: Obesity Surgery & Anesthesia Issues No known issue Meds Anticoagulation: No Beta Donnell within 24 hr: No Reason Beta Donnell not given: Pt. not on B-Odnnell Reported Medications [No Meds] No Conflict Check 07/12/12 Discontinued Scripts Acetaminophen* (Tylophen*) 500 Mg Capsule, 1 CAP PO Q4 PRN for PAIN AND OR ELEVATED TEMP, #30 CAP Prov:RUPERTO HEBERT PA-C 11/07/17 Cephalexin* (Keflex*) 500 Mg Capsule, 500 MG PO Q6, #28 CAP Prov:RUPERTO HEBERT PA-C 11/07/17 Ondansetron (Ondansetron Odt) 4 Mg Tab.rapdis, 4 MG PO Q6H PRN for NAUSEA AND/OR VOMITING, #10 TAB Prov:DARBY SWEET CERTIFIED PHARMACY TECH 09/26/17 Acetaminophen* (Tylophen*) 500 Mg Capsule, 1 CAP PO Q6H PRN for PAIN AND OR ELEVATED TEMP, #20 CAP Prov:DARBY SWEET CERTIFIED PHARMACY TECH 09/26/17 Naproxen* (Naprosyn*) 500 Mg Tablet, 500 MG PO BID PRN for PAIN AND/OR INFLAMMATION, #30 TAB Prov:LYNNE RAMEY PA-C 08/03/17 Current Medications Lactated Ringer's 1,000 ml @ 125 mls/hr Q8H IV Last administered on 04/23/18at 05:56; Admin Dose 125 MLS/HR; Start 04/23/18 at 04:37 Butorphanol Tartrate (Stadol) 2 mg Q2H PRN IV .PAIN; Start 04/23/18 at 05:00 Lidocaine (Xylocaine 1% (Mpf)) 30 ml ONCE PRN INJ .EPISIOTOMY; Start 04/23/18 at 05:00 Oxytocin/Lactated Ringer's 500 ml @ 500 mls/hr ONCE POST IV ; Start 04/23/18 at 05:00 Oxytocin/Lactated Ringer's 500 ml @ 125 mls/hr POST IV ; Start 04/23/18 at 05:00 Ibuprofen (Motrin) 600 mg ONCE PRN PO .PAIN 1-5; Start 04/23/18 at 05:00 Lactated Ringer's 1,000 ml @ 2,000 mls/hr Q30M PRN IV .ANESTHESIA Last administered on 04/23/18at 05:28; Admin Dose 2,000 MLS/HR; Start 04/23/18 at 04:37 Oxytocin/Lactated Ringer's 500 ml @ 0 mls/hr ONCE PRN IV .VAGINAL BLEEDING; Start 04/23/18 at 05:00 Methylergonovine Maleate (Methergine) 0.2 mg ONCE PRN IM .VAGINAL BLEEDING; Start 04/23/18 at 05:00 Carboprost Tromethamine (Hemabate) 250 mcg ONCE PRN IM .VAGINAL BLEEDING; Start 04/23/18 at 05:00 Misoprostol (Cytotec) 1,000 mcg ONCE PRN [place] .VAGINAL BLEEDING; Start 04/23/18 at 05:00 Meds reviewed: Yes Allergies Coded Allergies: No Known Allergy (Unverified , 04/23/18) Allergies Reviewed: Yes Labs/Studies Labs Reviewed: Reviewed by anesthesiologist Result Diagram: 04/23/18 0510 Laboratory Tests 04/23/18 05:10 test: Positive Pre-procedure Exam Last vitals Vital Signs Date Temp Pulse Resp B/P (MAP) Pulse Ox O2 O2 Flow FiO2 Time Delivery Rate 04/23/18 98.6 89 18 141/84 Room Air 04:47 (103) Airway: Adequate mouth opening, Adequate thyromental dist Mallampati: Mallampati II Teeth: Normal Lung: Normal Heart: Normal ASA Physical Status ASA physical status: 2 Emergency: None Planned Anesthetic Neuraxial: Epidural Planned Pain Management Parenteral pain med Pre-operative Attestations Prior to commencing anesthesia and surgery, the patient was re-evaluated, there was verification of: *The patient's identity *The results of appropriate recent lab work and preoperative vital signs *The above evaluation not changing prior to induction *Anesthetic plan, risk benefits, alternative and complications discussed with patient/family; questions answered; patient/family understands, accepts and wishes to proceed. DARCY VAUGHN Apr 23, 2018 06:22
[2018-04-23] MEDS ORDERED: FENTAnyl 2MCG/ML-ROPIV 0.2% 100 ML ONE (06:24)
[2018-04-23] MEDS ORDERED: ONDANSETRON 4 MG INJ IV PRN ×3 (06:30→10:00)
[2018-04-23] MEDS ORDERED: NALOXONE (0.4 MG/ML) INJ IV PRN ×2 (06:30→10:00)
[2018-04-23] MEDS ORDERED: FENTAnyl 2MCG/ML-ROPIV 0.2% 100 ML BAG EPI SCH (06:30)
[2018-04-23] MEDS ORDERED: DIPHENHYDRAMINE 50 MG INJ IV PRN ×3 (06:30→10:00)
[2018-04-23] MEDS ORDERED: CEFAZOLIN 2 GM/50 ML (PMX) 50 ML IVPB SCH (09:30)
[2018-04-23] MEDS ORDERED: ONDANSETRON 4 MG INJ IV STA (09:31)
--- NOTE | 2018-04-23 09:33 | QN ---
Documentation Comment requested to insert IUPC VE /fl IUPc inserted for amnioinfusion CONY DUFF MD Apr 23, 2018 09:33
--- NOTE | 2018-04-23 09:35 | PREAC ---
Date/Time of Note Date/Time of Note DATE: 04/23/18 TIME: 09:34 Anesthesia Eval and Record Evaluation Time Pre-Procedure Interview DATE: 04/23/18 TIME: 09:34 Age 32 Sex female NPO: 8 hrs Preoperative diagnosis failed Vback Planned procedure Repeat Csection Past Medical History Past Medical History: None Surgery & Anesthesia Issues No known issue Meds Anticoagulation: No Beta Donnell within 24 hr: No Reason Beta Donnell not given: Pt. not on B-Donnell Reported Medications [No Meds] No Conflict Check 07/12/12 Discontinued Scripts Acetaminophen* (Tylophen*) 500 Mg Capsule, 1 CAP PO Q4 PRN for PAIN AND OR ELEVATED TEMP, #30 CAP Prov:RUPERTO HEBERT PA-C 11/07/17 Cephalexin* (Keflex*) 500 Mg Capsule, 500 MG PO Q6, #28 CAP Prov:RUPERTO HEBERT PA-C 11/07/17 Ondansetron (Ondansetron Odt) 4 Mg Tab.rapdis, 4 MG PO Q6H PRN for NAUSEA AND/OR VOMITING, #10 TAB Prov:DARBY SWEET NP 09/26/17 Acetaminophen* (Tylophen*) 500 Mg Capsule, 1 CAP PO Q6H PRN for PAIN AND OR ELEVATED TEMP, #20 CAP Prov:DARBY SWEET GAS PIPE LAYER 09/26/17 Naproxen* (Naprosyn*) 500 Mg Tablet, 500 MG PO BID PRN for PAIN AND/OR INFLAMMATION, #30 TAB Prov:LYNNE RAMEY PA-C 08/03/17 Current Medications Lactated Ringer's 1,000 ml @ 125 mls/hr Q8H IV Last administered on 04/23/18at 05:56; Admin Dose 125 MLS/HR; Start 04/23/18 at 04:37 Butorphanol Tartrate (Stadol) 2 mg Q2H PRN IV .PAIN; Start 04/23/18 at 05:00 Lidocaine (Xylocaine 1% (Mpf)) 30 ml ONCE PRN INJ .EPISIOTOMY; Start 04/23/18 at 05:00 Oxytocin/Lactated Ringer's 500 ml @ 500 mls/hr ONCE POST IV ; Start 04/23/18 at 05:00 Oxytocin/Lactated Ringer's 500 ml @ 125 mls/hr POST IV ; Start 04/23/18 at 05:00 Ibuprofen (Motrin) 600 mg ONCE PRN PO .PAIN 1-5; Start 04/23/18 at 05:00 Lactated Ringer's 1,000 ml @ 2,000 mls/hr Q30M PRN IV .ANESTHESIA Last administered on 04/23/18at 05:28; Admin Dose 2,000 MLS/HR; Start 04/23/18 at 04:37 Oxytocin/Lactated Ringer's 500 ml @ 0 mls/hr ONCE PRN IV .VAGINAL BLEEDING; Start 04/23/18 at 05:00 Methylergonovine Maleate (Methergine) 0.2 mg ONCE PRN IM .VAGINAL BLEEDING; Start 04/23/18 at 05:00 Carboprost Tromethamine (Hemabate) 250 mcg ONCE PRN IM .VAGINAL BLEEDING; Start 04/23/18 at 05:00 Misoprostol (Cytotec) 1,000 mcg ONCE PRN [place] .VAGINAL BLEEDING; Start 04/23/18 at 05:00 Naloxone HCl (Narcan) 0.1 mg Q2M PRN IV .RESP RATE; Start 04/23/18 at 06:30; Stop 04/24/18 at 06:29 Diphenhydramine HCl (Benadryl) 25 mg Q6H PRN IV .ITCHING; Start 04/23/18 at 06:30; Stop 04/24/18 at 06:29 Ondansetron HCl (Zofran Inj) 4 mg Q6H PRN IV .NAUSEA/VOMITING; Start 04/23/18 at 06:30; Stop 04/24/18 at 06:29 Fentanyl/ Ropivacaine 100 ml EPIDURAL INFUSION EPI ; Start 04/23/18 at 06:30 Cefazolin Sodium/ Dextrose 50 ml @ 100 mls/hr ONCE IVPB ; Start 04/23/18 at 09:30 Oxytocin/Lactated Ringer's 500 ml @ 125 mls/hr POST IV ; Start 04/23/18 at 09:30 Oxytocin/Lactated Ringer's 500 ml @ 0 mls/hr ONCE PRN IV .VAGINAL BLEEDING; Start 04/23/18 at 09:30 Methylergonovine Maleate (Methergine) 0.2 mg ONCE PRN IM .VAGINAL BLEEDING; Start 04/23/18 at 09:30; Status UNV Carboprost Tromethamine (Hemabate) 250 mcg ONCE PRN IM .VAGINAL BLEEDING; Start 04/23/18 at 09:30; Status UNV Misoprostol (Cytotec) 1,000 mcg ONCE PRN [place] .VAGINAL BLEEDING; Start 04/23/18 at 09:30; Status UNV Meds reviewed: Yes Allergies Coded Allergies: No Known Allergy (Unverified , 04/23/18) Allergies Reviewed: Yes Labs/Studies Labs Reviewed: Reviewed by anesthesiologist Result Diagram: 04/23/18 0510 04/23/18 0510 Laboratory Tests 04/23/18 05:10 Blood Bank Test 04/23/18 05:10 Antibody Screen NEGATIVE Blood Type B POSITIVE Rh Immune Globulin Candidate NO test: Positive Pre-procedure Exam Last vitals Vital Signs Date Temp Pulse Resp B/P (MAP) Pulse Ox O2 O2 Flow FiO2 Time Delivery Rate 04/23/18 98.6 89 18 141/84 Room Air 04:47 (103) Airway: Adequate mouth opening, Adequate thyromental dist Mallampati: Mallampati III Teeth: Normal Lung: Normal Heart: Normal ASA Physical Status ASA physical status: 2 Emergency: E Planned Anesthetic Neuraxial: Epidural Planned Pain Management Epidural, Parenteral pain med, Other neuraxial med Pre-operative Attestations Prior to commencing anesthesia and surgery, the patient was re-evaluated, there was verification of: *The patient's identity *The results of appropriate recent lab work and preoperative vital signs *The above evaluation not changing prior to induction *Anesthetic plan, risk benefits, alternative and complications discussed with patient/family; questions answered; patient/family understands, accepts and wishes to proceed. ILIANA BERG MD Apr 23, 2018 09:34
[2018-04-23] MEDS ORDERED: morphine SULFATE/PF (10 MG/10 ML) INJ ONE (09:41)
[2018-04-23] MEDS ORDERED: LIDOCAINE 1.5%/EPI MPF (SDV) 30 ML VIAL ONE (09:42)
[2018-04-23] MEDS ORDERED: OXYTOCIN 10 UNIT INJ ONE (09:42)
[2018-04-23] MEDS ORDERED: ZOLPIDEM 5 MG TAB PO PRN ×2 (10:00→15:30)
[2018-04-23] MEDS ORDERED: FENTAnyl 50 MCG/ML VIAL IV PRN (10:00)
[2018-04-23] MEDS ORDERED: KETOROLAC 30 MG INJ IV PRN ×2 (10:00)
[2018-04-23] MEDS ORDERED: hydrALAzine 20 MG INJ IV PRN (10:00)
[2018-04-23] MEDS ORDERED: LABETALOL HCL 20MG INJ IV PRN (10:00)
[2018-04-23] MEDS ORDERED: FAMOTIDINE 20 MG INJ IV ONE (10:00)
[2018-04-23] MEDS ORDERED: HYDROmorphONE 1 MG/5 ML IV SYRINGE IV PRN ×3 (10:00)
[2018-04-23] MEDS ORDERED: HYDROmorphONE 0.5 MG/0.5 ML SYG IV PRN ×2 (10:00)
[2018-04-23] MEDS ORDERED: LEVALBUTEROL (NEB) 1.25 MG/0.5 ML AMP HHN PRN (10:00)
[2018-04-23] MEDS ORDERED: METOCLOPRAMIDE 10 MG INJ IV ONE (10:00)
--- NOTE | 2018-04-23 13:01 | HP ---
Date/Time of Note Date/Time of Note DATE: 04/23/18 TIME: 12:56 OB - History Hx of Present Free Text/Dictation 32-year-old female 5 para 4 at 38+ weeks with history of 1 previous C- section admitted complaining of onset of labor pain at 1:00 in the morning and a rupture of membrane at 3:00 and 1 Last Menstrual Period: July 30, 2017 Estimated Due Date: May 06, 2018 : 5 Para: 4 Care: Good Care Obstetrical Complications: None, Other (Previous section x1 for breech presentation) Medical Complications: None, Other (Previous section) Past Family/Social History * Past Medical, Surgical, Family and Obstetric Histories reviewed from chart. Blood Type: B+ Rubella: immune RPR/VDRL: Negative GBS Status: Negative HBsAG: Negative OB Admission Exam Vital Signs Vital Signs Vital Signs Date Temp Pulse Resp B/P (MAP) Pulse Ox O2 O2 Flow FiO2 Time Delivery Rate 04/23/18 98.6 89 18 141/84 Room Air 04:47 (103) Physical Exam HEENT: WNL Heart: Rhythm Normal Lungs: Clear, Equal Abdomen: WNL Extremities: Normal Reflexes: Normal Cervical Dilatation: 3cm Effacement: 50% Station: -3 Membranes: Ruptured Amniotic Fluid: Thin Meconium Heart Rate: 140's Accelerations: Accelerations Present Decelerations: No Decelerations Varibility: Moderate Contractions on Admission: 6-10 Minutes Apart Date/Time Contractions Began: 04/23/2018 at 1 AM Frequency of Contractions: Every 5 or 6 minutes Duration: Over 4550 seconds Intensity: Mild Last 72 hours Lab Results CBC & BMP 04/23/18 05:10 Liver Function Test 04/23/18 05:10 Alanine Aminotransferase (ALT/SGPT) < 6 L Albumin 3.5 Alkaline Phosphatase 188 H Aspartate Amino Transf (AST/SGOT) 27 Direct Bilirubin 0.00 Total Protein 7.2 OB Assessment/Plan Reason for admission: rupture of membranes Other Assessment: Term gestation Previous x1 Labor pains Other plan: Proceed with vaginal delivery Patient is prepared to have urgent or emergent section if necessary LONNY JARRETT MD Apr 23, 2018 13:01
--- NOTE | 2018-04-23 13:04 | LDN ---
Date/Time of Note Date/Time of Note DATE: 04/23/18 TIME: 13:02 Delivery Summary Normal spontaneous vaginal delivery of a viable over intact perineum Suprapubic pressure was used to guide the shoulder inside the canal mainly because of the poor maternal pushing effort Weeks of Gestation 38+ Placenta Delivered: Spontaneously, Intact & Complete Meconium: Light Episiotomy: No Perineal laceration: 0 Laceration repair: Small bleeding point on the right sided hymen was taken care of using 4-0 chromic single stitch Anesthesia type: Epidural Estimated blood loss: 200 Sponge & Needle done & correct: Yes All needle counts correct: Yes Any foreign bodies felt in the: No Delivery Information Sex Infant Sex: male Apgars 1 Minute: 8 5 Minute: 9 Suctioning Nose & mouth suctioned at brenna: Yes Delee suction performed: No Umbilical Cord Umbilical cord with: 3 Vessels Cord presentations: nuchal cord Nuchal cord present X: 2 Cord Blood was obtained: Yes Mother & Baby Disposition Disposition Mom & Baby to Maternity; Good: Yes (Mother and baby were recovering in good condition) Mom transferred to: Other (Maternity) Baby to NICU: No LONNY JARRETT MD Apr 23, 2018 13:04
[2018-04-23] MEDS ORDERED: KETOROLAC 30 MG INJ IM STA (13:06)
[2018-04-23 15:00] VITALS: BP 134/77; PULSE 72; RESP 18
[2018-04-23] MEDS ORDERED: LACTATED RINGER'S 1,000 ML IV* SCH (15:29)
[2018-04-23] MEDS ORDERED: BENZOCAINE 20% 56 ML SPRAY TOP PRN (15:30)
[2018-04-23] MEDS ORDERED: HYDROCODONE/APAP (5/325) TAB PO PRN ×2 (15:30)
[2018-04-23] MEDS ORDERED: LANOLIN HPA 1 PKT TOP PRN (15:30)
[2018-04-23] MEDS ORDERED: DIBUCAINE 1% 30 GM OINT TOP PRN (15:30)
[2018-04-23] MEDS ORDERED: WITCH HAZEL/GLYCERIN PAD PR PRN (15:30)
[2018-04-23] MEDS: CEPHALEXIN 500 MG CAP PO SCH ×2 (17:48→23:25)
[2018-04-23] MEDS: IBUPROFEN 600 MG TAB PO SCH ×2 (17:49→23:25)
--- NOTE | 2018-04-23 18:05 | NUR ---
EOSS: VSS. AMBULATING AND DUE TO VOID X1 MORE. IV DC'D PER ORDERS. GOOD BONDING SEEN WITH THE BABY. MOM PLANS ON COMBO FEEDING.
[2018-04-23 20:00] VITALS: BP 120/68; PULSE 76; RESP 18
[2018-04-23] MEDS: MAGNESIUM HYDROXIDE 30ML CUP PO SCH (20:56)
[2018-04-23] MEDS: SENNA/DOCUSATE NA (8.6MG/50MG) TAB PO SCH (20:56)
--- NOTE | 2018-04-23 23:18 | PAC ---
Date/Time of Note Date/Time of Note DATE: 04/23/18 TIME: 23:16 Post-Anesthesia Notes Post-Anesthesia Note Last documented vital signs Vital Signs Date Temp Pulse Resp B/P (MAP) Pulse Ox O2 O2 Flow FiO2 Time Delivery Rate 04/23/18 98.9 76 18 120/68 Room Air 23:00 (85) Activity: WNL Respiratory function: WNL Cardiovascular function: WNL Mental status: Baseline Pain reasonably controlled: Yes Hydration appropriate: Yes Nausea/Vomiting absent: Yes DARCY VAUGHN Apr 23, 2018 23:18
[2018-04-24] VITALS: BP 124/61; PULSE 76; RESP 19
[2018-04-24 04:00] VITALS: BP 135/78; PULSE 67; RESP 18
[2018-04-24] MEDS: IBUPROFEN 600 MG TAB PO SCH ×3 (05:52→18:10)
[2018-04-24] MEDS: CEPHALEXIN 500 MG CAP PO SCH ×3 (05:52→18:09)
--- NOTE | 2018-04-24 06:22 | NUR ---
EOSS: PATIENT IN STABLE CONDITION. BONDING WELL WITH . WELL. AMBULATING WELL, VOIDING, PASSING GAS AND HAD BM. FUNDUS FIRM AT UMBILICUS WITH SMALL AMOUNT OF LOCHIA. PATIENT IS AFEBRILE.
[2018-04-24 07:40] VITALS: BP 130/74; RESP 20
[2018-04-24] MEDS: SENNA/DOCUSATE NA (8.6MG/50MG) TAB PO SCH ×2 (09:23→22:47)
[2018-04-24] MEDS: MAGNESIUM HYDROXIDE 30ML CUP PO SCH ×2 (09:23→22:47)
--- NOTE | 2018-04-24 12:07 | DS ---
Date/Time of Note Date/Time of Note Home today or next day DATE: 04/24/18 TIME: 12:06 Obstetrical Discharge Record Final Diagnosis Final Diagnosis: Term delivered Other Final Diagnosis Status post vaginal delivery Vaginal Delivery Obstetrical Delivery: Spontaneous, Successful Condition on Discharge Physical Assessment Last Vitals: See nurse's note Voiding: Yes Bowel Movement: Yes Breast: Soft, non-tender, Filling Fundus: Firm Abdomen and Incision: Abdomen is soft with present bowel sounds and fundus feels firm Episiotomy: Not applicable and perineum is clean Calf Tenderness: No Patient Condition: Good LONNY JARRETT MD Apr 24, 2018 12:07
--- NOTE | 2018-04-24 12:08 | PD.PPDC ---
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 Provider Information Physician Information 32-year-old female had successful Diagnosis [id number] Final Diagnosis: Hsldn8h Status post vaginal delivery Condition Gcuzz1Hb Patient Condition: Hsmoz4x Good Diet Zmmhf2Bw Diet: Cdtql0j Resume Regular Diet Activity/Restrictions Linbu0Oq Activity: Qvgja4m Normal Activity May Shower Iwoin3Gg Restrictions: Tkrkw2m Nothing in the Vagina [id number] Return to Work or School: Lirng7i Jun 07, 2018 Follow-up Follow-up with Physician: 2, 4, Week/Weeks (In clinic) Return to clinic for Dxubk7Pc OB Instructions: Goimk0u Breast Tenderness Depression Comment: Pelvic rest for 6 weeks LONNY JARRETT MD Apr 24, 2018 12:08
[2018-04-24] MEDS ORDERED: IBUP-1542 PO (12:09)
--- NOTE | 2018-04-24 15:13 | NUR ---
PATIENT CARE WAS TRANSFERRED TO [facility] AT THIS TIME PER FAVIO CHARGE NURSE. PATIENT STABLE AT THIS TIME.
--- NOTE | 2018-04-24 15:14 | NUR ---
ASSUMED PLAN OF CARE FROM CARROL
[2018-04-24 16:00] VITALS: BP 115/76; PULSE 68; RESP 18
--- NOTE | 2018-04-24 18:55 | NUR ---
EOSS CONDITION IS STABLE. NO EXCESSIVE BLEEDING. AFEBRILE ALL SHIFT. VOIDING IN GOOD AMOUNTS. BONDING WELL WITH BABY
[2018-04-24 20:50] VITALS: BP 111/60; PULSE 64; RESP 21
[2018-04-25] MEDS: CEPHALEXIN 500 MG CAP PO SCH ×2 (00:47→05:32)
[2018-04-25 04:10] VITALS: BP 130/67; PULSE 65; RESP 21
--- NOTE | 2018-04-25 05:22 | NUR ---
PT REFUSED NEED FOR PRODUCTION AIDE X2 THIS SHIFT. RN ATTEMPTED TO CALL PRODUCTION AIDE ONCE MORE TO ENSURE UNDERSTANDING OF EVERYTHING AND PT REFUSED. SHE SPOKE TO ME IN [place] AND VERIFIED THAT SHE HAS UNDERSTOOD ALL TEACHING.
[2018-04-25] MEDS: IBUPROFEN 600 MG TAB PO SCH ×2 (05:32)
--- NOTE | 2018-04-25 06:42 | NUR ---
EOSS: PT STABLE AT THIS TIME. SEE EXTRACTIONS TECHNICIAN. HOURLY ROUNDING MAINTAINED THROUGHOUT SHIFT.
[2018-04-25 08:00] VITALS: BP 121/74; PULSE 69; RESP 18
[2018-04-25] MEDS ORDERED: MEASLES,MUMPS,RUBELLA VACCINE INJ SC* ONE (09:00)
[2018-04-25] MEDS ORDERED: VARICELLA VACCINE LIVE/PF 1,350 UNIT/0.5 ML ML SC* ONE (09:00)
[2018-04-25] MEDS: MAGNESIUM HYDROXIDE 30ML CUP PO SCH (09:00)
[2018-04-25] MEDS: SENNA/DOCUSATE NA (8.6MG/50MG) TAB PO SCH (09:00)
[2018-04-25] MEDS ORDERED: DIPHTH/TET/ACEL PERTUSS (ADULT) 0.5 ML VIAL IM* ONE (09:00)
--- NOTE | 2018-04-25 11:15 | NUR ---
DISCHARGE INSTRUCTION GIVEN AND PT VERBALIZED UNDERSTANDING
== END 2018-04-25 11:45 | disposition home or self-care (01) | DRG 807 ==
LOC: L-D 03:45 → OBT 03:45 → L-D 04:20 → OBT 04:20 → PP1 14:30
PROVIDERS: ADMIT Obstetrics & Gynecology; ATTEND Obstetrics & Gynecology
PROC: 10E0XZZ Delivery of Products of Conception, External Approach (ICD-10-PCS; principal; 2018-04-23)
PROC: 0UQKXZZ Repair Hymen, External Approach (ICD-10-PCS; 2018-04-23)
DX: O69.81X0 Labor and delivery complicated by cord around neck, without compression, not applicable or unspecified (principal); Z37.0 Single live birth; O77.0 Labor and delivery complicated by meconium in amniotic fluid; O70.0 First degree perineal laceration during delivery; O34.219 Maternal care for unspecified type scar from previous cesarean delivery; Z3A.38 38 weeks gestation of pregnancy
CPT/HCPCS: 62319; 76815; 80053; 81003; 84560; 85025; 85610; 85730; 86592; 86850; 86900; 86901; 87340; 99464; G0463; J0690; J2274; J2590; J3010; J7120

== ENCOUNTER 2018-09-12 14:28 | Emergency (ER) | payer MEDICAID ==
[~2018-09-12] VITALS: Ht 170.2 cm; Wt 100.0 kg
[~2018-09-12 14:28] MED LIST changes: -ACET500C5 PO; -CEPH-443 PO; +IBUP-1542 PO; -NAPR-985 PO; -ONDA4TAB14 PO
[2018-09-12 14:52] VITALS: Ht 170.2 cm; Wt 100.0 kg
[2018-09-12] MEDS ORDERED: IBUP-1542 PO (15:03)
[2018-09-12] MEDS ORDERED: AZIT500T3 PO (15:03)
--- NOTE | 2018-09-12 15:07 | ERD ---
ER Documentation Chief Complaint Chief Complaint SORE THROAT WITH FEVER/COUGH X 2 DAYS HPI 32-year-old woman complains of sore throat, fever, dry cough x2 days. Patient also complains of dysuria denies vaginal discharge, she is currently breast- feeding. She denies chest pain or shortness of breath, no rash, no calf or leg swelling. ROS All systems reviewed and are negative except as per history of present illness. Medications Home Meds Active Scripts Ibuprofen* (Motrin*) 600 Mg Tab, 600 MG PO Q8 PRN for PAIN AND/OR INFLAMMATION, #30 TAB Prov:TALHA CLARKE MD 09/12/18 Azithromycin* (Zithromax*) 500 Mg Tablet, 500 MG PO DAILY for 5 Days, TAB Prov:TALHA CLARKE MD 09/12/18 Ibuprofen* (Ibuprofen*) 600 Mg Tablet, 600 MG PO Q6, #60 TAB 0 Refills Prov:LONNY JARRETT MD 04/24/18 Reported Medications [No Meds] No Conflict Check 07/12/12 Allergies Allergies: Coded Allergies: No Known Allergy (Unverified , 04/23/18) PMhx/Soc History of Surgery: Yes ( X 2) Anesthesia Reaction: No Hx Neurological Disorder: No Hx Respiratory Disorders: No Hx Cardiac Disorders: No Hx Psychiatric Problems: No Hx Miscellaneous Medical Probl: No Hx Alcohol Use: No Hx Substance Use: No Hx Tobacco Use: No FmHx Family History: No diabetes Physical Exam Vitals Vital Signs Date Temp Pulse Resp B/P (MAP) Pulse Ox O2 O2 Flow FiO2 Time Delivery Rate 09/12/18 98.9 88 20 130/71 98 Room Air 17:28 (90) 09/12/18 100.9 15:13 09/12/18 100.9 110 20 143/82 97 14:52 (102) Physical Exam GENERAL: Well-developed, well-nourished, well-hydrated, febrile HEENT: Moist mucous membranes, pink conjunctiva, positive bilateral pharyngeal erythema with exudates, uvula is midline, no submandibular induration NEURO: Alert and oriented 3, cranial nerves II through XII intact bilaterally, pupils equal round reactive to light, no focal deficits or facial asymmetry, s ensation intact distally Strength 5/5 in upper and lower extremities bilaterally CARDIAC: Tachycardic and regular, no murmurs rubs or gallops LUNGS: Clear bilaterally no wheezing crackles or stridor EXTREMITIES: No clubbing cyanosis or edema, calves are bilaterally symmetrical, no Homans sign, no popliteal cord sign. Distal pulses equal and bilateral Results 24 hrs Laboratory Tests Test 09/12/18 15:05 Urine Color YELLOW Urine Clarity CLEAR Urine pH 5.0 Urine Specific [place] 1.014 Urine Ketones NEGATIVE mg/dL Urine Nitrite NEGATIVE mg/dL Urine Bilirubin NEGATIVE mg/dL Urine Urobilinogen NEGATIVE mg/dL Urine Leukocyte Esterase NEGATIVE Arthur/ul Urine Hemoglobin NEGATIVE mg/dL Urine Glucose NEGATIVE mg/dL Urine Total Protein NEGATIVE mg/dl Current Medications Medications Dose Sig/James Start Time Status Last (Trade) Ordered Route PRN Stop Time Admin Dose Reason Admin Ibuprofen 600 mg ONCE ONCE 09/12/18 DC 09/12/18 (Motrin) PO 15:30 15:13 09/12/18 15:31 Penicillin 1,200,000 ONCE ONCE 09/12/18 DC 09/12/18 G units IM 15:30 15:19 Benzathine 09/12/18 15:31 (Bicillin La) Procedures/MDM I administered ibuprofen 600 mg p.o. for fever and penicillin G 1,200,000 units IM Urine analysis was negative for infection. Differential diagnoses considered, included but not limited to acute coronary syndrome, pulmonary embolism, aortic dissection, abdominal aortic aneurysm, sepsis, stroke, meningitis, encephalitis, pneumonia, appendicitis, cholecystitis, bowel obstruction, pyelonephritis, nephrolithiasis, cystitis, as well as metabolic, hematologic, and electrolyte abnormalities. As well as abscess, cellulitis, fractures, and dislocations. Patient feels much better at this time, and vital signs are normal, symptoms have improved. I did give strict instructions to return to the ED if symptoms continue or worsen, patient will otherwise follow-up with primary care physician. Patient understood instructions and agreed to plan. Disclaimer: Inadvertent spelling and grammatical errors are likely due to EHR /dictation software use and do not reflect on the overall quality of patient care. Also, please note that the electronic time recorded on this note does not necessarily reflect the actual time of the patient encounter. Departure Diagnosis: Primary Impression: Strep throat Additional Impression: URI (upper respiratory infection) URI type: acute nasopharyngitis (common cold) Qualified Codes: J00 - Acute nasopharyngitis [common cold] Condition: Good Patient Instructions: Pharyngitis, Strep (Confirmed) TALHA CLARKE MD Sep 12, 2018 15:07
[2018-09-12] MEDS ORDERED: IBUPROFEN 600 MG TAB PO ONE (15:30)
[2018-09-12] MEDS ORDERED: PENICILLIN G BENZ 1.2 MIL UNIT SYG IM ONE (15:30)
[2018-09-12 17:28] VITALS: BP 130/71; PULSE 88; RESP 20
== END 2018-09-12 17:30 | disposition home or self-care (01) ==
LOC: FTE 14:28
DX: J00 Acute nasopharyngitis [common cold] (principal)
CPT/HCPCS: 81003; 96372; J0561; Z7502; Z7610

== ENCOUNTER 2019-01-26 07:57 | Emergency (ER) | payer MEDICAID ==
[~2019-01-26] VITALS: Ht 162.6 cm; Wt 97.4 kg
[~2019-01-26 07:57] MED LIST changes: +AZIT500T3 PO; +OFLO5DRO46 RIGHT EYE
[2019-01-26 08:01] VITALS: BP 119/58; PULSE 72; RESP 18; Ht 162.6 cm; Wt 97.4 kg
[2019-01-26] MEDS ORDERED: FLUORESCEIN STRIP RIGHT EYE ONE (08:30)
[2019-01-26] MEDS ORDERED: TETRACAINE 0.5% 4 ML OPH RIGHT EYE ONE (08:30)
== END 2019-01-26 08:43 | disposition home or self-care (01) ==
LOC: FTE 07:57
DX: H57.89 Other specified disorders of eye and adnexa (principal)
CPT/HCPCS: Z7502; Z7610; 99283